=== PATIENT | female | born 1950 | race Hispanic/Latino ===

== ENCOUNTER 2021-12-14 11:27 | Outpatient (CLI) | payer MEDICARE, OTHER | END 2021-12-14 11:28 | disposition home or self-care (01) | LOC: NAV RAD 11:27 | PROVIDERS: ATTEND Nurse Practitioner Family | DX: I50.9 Heart failure, unspecified (principal); I51.7 Cardiomegaly; R09.89 Other specified symptoms and signs involving the circulatory and respiratory systems; J81.1 Chronic pulmonary edema | CPT/HCPCS: 71046 ==

== ENCOUNTER 2022-04-14 12:16 | Outpatient (CLI) | payer MEDICARE, OTHER | END 2022-04-14 12:17 | disposition home or self-care (01) | LOC: NAV RAD 12:16 | PROVIDERS: ATTEND Nurse Practitioner Family | DX: M17.0 Bilateral primary osteoarthritis of knee (principal) ==